=== PATIENT | male | born 1950 | race Hispanic/Latino ===

== ENCOUNTER 2020-08-25 09:30 | Outpatient (CLI) | payer MEDICARE ==
--- NOTE | 2020-08-25 09:44 | RAD ---
LUMBAR SPINE 2 VIEWS: Date: 08/25/2020 HISTORY: Lumbar disc disease. Low back pain. FINDINGS: AP and lateral views of the lumbar spine are performed. Generalized disc osteophytosis and facet arth rosis. No significant malalignment. No acute fracture. No focal bone lesion. IMPRESSION: Lumbar spondylosis. POS: AH
== END 2020-08-25 09:31 | disposition home or self-care (01) ==
LOC: TBSIIMAG 09:30
PROVIDERS: ATTEND Family Medicine
DX: M47.816 Spondylosis without myelopathy or radiculopathy, lumbar region (principal); G89.4 Chronic pain syndrome; M51.9 Unspecified thoracic, thoracolumbar and lumbosacral intervertebral disc disorder
CPT/HCPCS: 72100

== ENCOUNTER 2021-07-08 13:59 | Outpatient (CLI) | payer MEDICARE | END 2021-07-08 14:00 | disposition home or self-care (01) | LOC: BICMRI 13:59 | PROVIDERS: ATTEND Family Medicine | DX: M51.16 Intervertebral disc disorders with radiculopathy, lumbar region (principal); M47.26 Other spondylosis with radiculopathy, lumbar region; M48.061 Spinal stenosis, lumbar region without neurogenic claudication; M48.07 Spinal stenosis, lumbosacral region | CPT/HCPCS: 72148 ==